=== PATIENT | male | born 1950 | race Caucasian/White ===

== ENCOUNTER → 2018-06-08 | Outpatient (CLI) | payer OTHER | LOC: MRI 08:21 | DX: M19.011 Primary osteoarthritis, right shoulder (principal) ==

== ENCOUNTER → 2018-08-26 | Outpatient (CLI) | payer OTHER ==
[~2018-08-26] VITALS: Ht 170.2 cm; Wt 79.4 kg
[~2018-08-26] MED LIST: CRESTOR40 MG PO; METFORMIN HCL500 MG PO; NORVASC5 M1 PO; TOPROL XL25 MG PO; ZETIA10 MG PO
--- NOTE | ~2018-08-26 | CATHLAB ---
[facility] [address] ([address] [place] [address] INVASIVE PROCEDURE REPORT Name: LISSETTE YADAV Room #: REG [facility]#: [id number] Admission: 08/26/18 Attend Phys: Yuri Wynne, Discharge: Date of : 46 Date of Service: 08/26/18 1651 Report #: [id number] THIS REPORT FOR: //name// APPROVED REPORT Study performed: 08/26/2018 07:11:08 Patient Details Patient Status: Out-Patient Room #: The patient is a 68 year-old male Event Personnel Yuri Wynne Quarry Worker, Herminia Nicholson RN RN, Samantha Mariano RN RN, Zainab Weathers Sandifer, David Monitor Procedures Performed Art Access - R femoral artery* Left Heart Cath Coronaries, Bypass Grafts [id number] 62478 Initial Mod Sed Same Phys/QHP Gr5y [id number] 34030 Mod Sed Same Phys/QHP Ea 092001 Hemostasis w/ Mynx Indication Chest pain Risk Factors Coronary Artery Disease Previous Procedures/Diagnoses Previous CABG Procedure Narrative The patient was brought electively to the Cardiac Catheterization Laboratory and was prepped and draped in a sterile manner. The Right Groin^ was infiltrated with 1% Lidocaine subcutaneous anesthesia. A PINNACLE 6FR Sheath #[id number] sheath was inserted into the RFA^. Coronary angiography was performed using coronary diagnostic catheters. The right coronary system was accessed and visualized with a JR 4 catheter. The left coronary system was accessed and visualized with a JL 4 catheter. The left ventricle was accessed and visualized with a Pigtail catheter. Left ventricular/Aortic Valve gradient assessed via catheter pullback. Left ventriculogram was performed in LEGER projection. Closure device was deployed with a 6 Fr Mynx. The patient tolerated the procedure well and there were no complications associated with the procedure. There was no hematoma. [facility] [place] [address] INVASIVE PROCEDURE REPORT Name: LEIFSAULE CARLOS Room #: REG [facility]#: [id number] Admission: 08/26/18 Attend Phys: Yuri Wynne, Discharge: Date of : 46 Date of Service: 08/26/18 1651 Report #: [id number] Intraoperative Conscious Sedation Sedation start time: 07:55 Case end Time: 08:37 Fentanyl 50 mcg Versed 2 mg Fluoro Time: 6.57 minutes Contrast Type and Amount: Omnipaque 220 ml Coronary Angiography The patient's coronary anatomy is right dominant. Diagnostic Cath Left Main 70% distal left main stenosis LAD Occlusion of the proximal LAD. Widely patent left internal mammary to the LAD with good runoff into a large LAD system. Circumflex Severe ostial circumflex disease feeding two marginal branches OM1 Widely patent radial graft from the aorta to the first OM. Both proximal and distal anastomotic sites were widely patent. OM2 Moderate size second diagonal branch with minimal proximal plaquing. The second marginal branch was irrigated and protected by flow from the radial graft Right Coronary Large, dominant right coronary with a 70-80% proximal right coronary stenosis. Patent in situ right internal mammary to the mid posterolateral branch R PDA 50% ostial posterior descending branch stenosis RPLV Angiographically normal, large posterior lateral branch Left Ventriculography The left ventricular ejection fraction is estimated to be 65%. Left ventricular wall motion abnormalities are not present. There is no mitral insufficiency. Hemodynamics The aortic pressure is 143/65 mmHg with a mean of 94 mmHg. The left ventricular pressure is 249/143 mmHg with a mean of mmHg. The left ventricular end diastolic pressure is 144 mmHg. Conclusion 1. Normal global and regional left ventricular systolic function. [facility] [address] [place] [address] INVASIVE PROCEDURE REPORT Name: LISSETTE YADAV [id number] Admission: 08/26/18 Attend Phys: Yuri Wynne, Discharge: Date of : 46 Date of Service: 08/26/18 1651 Report #: [id number] 65% 2. 70% distal left main stenosis. Severe multivessel coronary disease 3. Patent left internal mammary to the LAD 4. Patent in situ right internal mammary to the posterolateral branch of the dominant right coronary. Moderate ostial posterior descending branch stenosis 5. Patent radial artery to the first marginal branch Recommendations Cardiac Rehabilitation Referral Aggressive Medical Therapy Medications Administered BAL Inhibitor (any) Aspirin (any) Beta Jeremiah (any) Statin (any) <ELECTRONICALLY SIGNED> By: Yuri Wynne MD, [facility] 08/26/181650 50 50 Yuri Wynne MD, FACC /INF
[2018-08-26 07:05] VITALS: BP 130/76
[2018-08-26 07:22] LABS: CALCIUM 9.1 mg/dL (8.5-10.1); CREATININE 1.1 mg/dL (0.7-1.3); POTASSIUM 3.7 mmol/L (3.5-5.1)
[2018-08-26 07:31] LABS: HEMATOCRIT 40.5 % (42.0-52.0); HEMOGLOBIN 13.6 gm/dL (14.0-18.0); MCH 29.9 pg (26.0-34.0); MCHC 33.5 g/dL (28.0-37.0); MCV 89.3 fL (80.0-100.0); RBC 4.54 mil/uL (4.50-6.00); RDW 13.1 % (10.5-14.5); WBC 5.3 thou/uL (4.0-11.0)
== END | disposition home or self-care (01) ==
LOC: CATH 06:32
PROVIDERS: Internal Medicine
DX: I25.10 Atherosclerotic heart disease of native coronary artery without angina pectoris (principal); I10 Essential (primary) hypertension; I25.2 Old myocardial infarction; E78.5 Hyperlipidemia, unspecified; Z82.49 Family history of ischemic heart disease and other diseases of the circulatory system; Z95.1 Presence of aortocoronary bypass graft; Z95.5 Presence of coronary angioplasty implant and graft; Z98.890 Other specified postprocedural states; Z79.899 Other long term (current) drug therapy

== ENCOUNTER → 2021-01-02 | Outpatient (CLI) | payer OTHER | LOC: SJCVC 11:36 | PROVIDERS: ATTEND Internal Medicine | DX: I44.0 Atrioventricular block, first degree (principal); R00.1 Bradycardia, unspecified; I25.10 Atherosclerotic heart disease of native coronary artery without angina pectoris; I10 Essential (primary) hypertension; E78.5 Hyperlipidemia, unspecified; I65.23 Occlusion and stenosis of bilateral carotid arteries; Z95.1 Presence of aortocoronary bypass graft; Z87.891 Personal history of nicotine dependence; Z72.89 Other problems related to lifestyle; Z79.84 Long term (current) use of oral hypoglycemic drugs; Z79.899 Other long term (current) drug therapy; Z79.82 Long term (current) use of aspirin ==

== ENCOUNTER → 2021-07-30 | Outpatient (CLI) | payer OTHER | LOC: SJCVCIMAG 08:42 | PROVIDERS: ATTEND Internal Medicine | DX: I34.0 Nonrheumatic mitral (valve) insufficiency (principal); R00.0 Tachycardia, unspecified; I65.23 Occlusion and stenosis of bilateral carotid arteries; I25.10 Atherosclerotic heart disease of native coronary artery without angina pectoris; I10 Essential (primary) hypertension; E78.5 Hyperlipidemia, unspecified; Z95.1 Presence of aortocoronary bypass graft; Z87.891 Personal history of nicotine dependence; Z79.82 Long term (current) use of aspirin; Z79.899 Other long term (current) drug therapy; Z72.89 Other problems related to lifestyle ==